=== PATIENT | male | born 1940 | race Caucasian/White ===

== ENCOUNTER 2022-11-11 07:47 | Emergency (ER) | payer MEDICARE, BC ==
[2022-11-11] MEDS ORDERED: Doxycycline 100 MG Cap PO ONE (08:20)
== END 2022-11-11 08:33 | disposition home or self-care (01) ==
LOC: LB.ED 07:47
DX: S70.362A Insect bite (nonvenomous), left thigh, initial encounter (principal); Z88.6 Allergy status to analgesic agent; Z88.8 Allergy status to other drugs, medicaments and biological substances; W57.XXXA Bitten or stung by nonvenomous insect and other nonvenomous arthropods, initial encounter
CPT/HCPCS: 99281; A9270